=== PATIENT | female | born 1980 | race Caucasian/White ===

== ENCOUNTER 2016-10-05 19:44 | Emergency (ER) | payer SELFPAY ==
[~2016-10-05] VITALS: Ht 167.6 cm; Wt 82.0 kg
--- NOTE | 2016-10-05 20:32 | PD ---
HPI Chief Complaint: Psychiatric Symptoms Time Seen by Provider: 20:32 Travel History International Travel<30 days: No Contact w/Intl Traveler<30days: No History of Present Illness HPI 36-year-old female with a history of asthma with a history of depression, bipolar disorder, PTSD is transferred to our hospital under Sanchez act for psychiatric evaluation. Per the Sanchez act report and the medical records sent with the patient she was seen at [facility] 2 days ago for attempted overdose. She apparently took 20 tablets of Prozac, 3 tablets of trazodone, 30 tablets of Zyprexa with alcohol. She was seen and evaluated in the emergency department and admitted to ICU stepdown unit where she was observed. The patient's labs, imaging and EKG are made unremarkable during her hospital stay. She was medically cleared and transferred to our facility for psychiatric evaluation for suicidal ideations. The patient is denying suicidal ideations or attempted suicide. She is stating that she "just wanted to go to sleep" because she has been unable to sleep for several days. She does admit that she has a tortuous relationship with her son who just moved back in with her which is what is causing her to have anxiety. She denies any medical complaints. She denies any chest pain, shortness of breath, abdominal pain, nausea, vomiting, diarrhea, headache, dizziness. No other complaints. PFSH Past Medical History Anemia: Yes Asthma: Yes Social History Tobacco Use: Yes Review of Systems Except as stated in HPI: all other systems reviewed are Neg Physical Exam Narrative GENERAL: Well-nourished and well-developed pleasant female patient in no acute distress who is nontoxic appearing. SKIN: Warm and dry. HEAD: Normocephalic and atraumatic. EYES: No injection, drainage, or hyphema noted. PERRLA. EOMI. ENT: No nasal drainage noted. Oropharynx is clear. NECK: Supple and the trachea is midline. CARDIOVASCULAR: Regular rate and rhythm. RESPIRATORY: Breath sounds are equal bilaterally with no accessory muscle use, wheezing, rhonchi, or crackles. GASTROINTESTINAL: Abdomen is soft, non-tender, and nondistended. MUSCULOSKELETAL: No obvious deformities, swelling, cyanosis, or ecchymosis is present throughout the upper and lower extremities. Patient has full range of motion without any signs of neurovascular compromise. NEUROLOGICAL: Awake, alert, and oriented. Normal speech and gait. Cranial nerves are grossly intact. MDM Medical Decision Making Medical Screen Exam Complete: Yes Emergency Medical Condition: Yes Differential Diagnosis Differential: Depression versus adjustment reaction versus anxiety versus PTSD versus psychosis NOS versus mood disorder NOS versus substance induced mood disorder versus ODD versus adjustment reaction versus schizophrenia versus bipolar disorder versus schizoaffective versus electrolyte abnormality Narrative Course Patient presents under a Sanchez act. Patient was seen and evaluated at [facility] for possible overdose and observed for 2 days inpatient at their facility. I reviewed the labs and imaging from the last 2 days which were unremarkable. Of note the patient did have alcohol on board as well as positive cocaine on her urine drug screen. Physical examination and vital signs are essentially unremarkable. Patient has no medical complaints to report. The patient does not require any repeat laboratory testing at this time. Psych screen has been ordered. The patient will be medically cleared for psychiatric evaluation and disposition. Diagnosis Primary Impression: Suicidal behavior Qualified Code: T14.91 - Suicidal behavior with attempted self-injury Liegh Rich Oct 05, 2016 20:32
[2016-10-05] MEDS ORDERED: NICOTINE 21 MG/24 HR PATCH T-DERMAL ONE (21:30)
[2016-10-05 22:00] VITALS: BP 117/68; PULSE 71; RESP 18; O2SAT 96
[2016-10-06] MEDS ORDERED: PROZ20CA11 PO ×2 (01:31→14:14)
[2016-10-06] MEDS ORDERED: ZYPR2.5T2 PO (01:31)
[2016-10-06] MEDS ORDERED: TRAZ50TA12 PO (01:31)
[2016-10-06 02:21] VITALS: BP 141/84; PULSE 73; RESP 18; O2SAT 97
[2016-10-06 02:36] VITALS: BP 117/68; PULSE 71; RESP 18; O2SAT 96
[2016-10-06 06:12] VITALS: BP 130/86; PULSE 65; RESP 17; O2SAT 97
[2016-10-06 10:00] VITALS: BP 137/80; PULSE 68; RESP 18
[2016-10-06 14:11] VITALS: BP 135/88; PULSE 67; RESP 18; O2SAT 99
--- NOTE | 2016-10-06 14:13 | PD ---
History of Present Illness Chief Complaint: Psychiatric Symptoms Time Seen by Provider: 14:00 Travel History International Travel<30 Days: No Contact w/Intl Traveler<30days: No Known affected area: No Legal Status Legal Status: Sanchez Act Sanchez Act Signed By: STANLEY Damon DO [facility] History of Present Illness: This is a 36-year-old female who was Sanchez acted at [facility] for overdosing on medicines while consuming alcohol. Patient was represented as having a history of schizophrenia and bipolar disorder. She currently shows no significant evidence of either disease. She did relapse regarding cocaine use after her son moved back into the home recently. Apparently her son has a significant problem with drug abuse. Patient finds his presence at home difficult to tolerate but was told by this physician she cannot use him as an excuse for her own relapse. Patient denies any suicidality and in fact verbally contracts for safety. Her cognition is intact. Again, she states shows no sign of significant major mental illness other than drug abuse. She is acting calm, cooperative and appropriately. She wants to be discharged home. She is verbally [place] for safety. [facility] Past Medical History Medical History: Denies Significant Hx Anemia: Yes Asthma: Yes Psychiatric History Psychiatric History Hx Psychiatric Treatment: Patient with history of schizophrenia, bipolar d/o, axiety d/o and insomnia. Last inpatient admit for 2 days 2015. Patient states she goes to [facility] ER for her medications. This physician feels [facility] "sold" as a "bill of goods" by intimating the patient is either schizophrenic or bipolar. Patient does not show current evidence of either illness and instead is obviously abusing cocaine. History of Inpatient Treatment: Yes Social History Hx Alcohol Use: Yes Hx Tobacco Use: Yes Hx Substance Use: Yes Substance Use Type: Alcohol, Crack, Marijuana, Cocaine Other Substances Used: clean for 7 yrs Hx of Substance Use Treatment: Yes Allergies-Medications (Allergen,Severity, Reaction): Coded Allergies: No Known Allergies (Unverified , 10/05/16) Reported Meds & Prescriptions Reported Meds & Active Scripts Active Review of Systems Except as stated in HPI: all other systems reviewed are Neg Exam Alert: Yes Hart[place]: Person, Place, Date, Situation Mood: Calm Affect: Appropriate Speech: Clear, Logical Eye Contact: Normal Memory Intact: Immediate, Recent, Remote Insight/Judgement Adequate MDM Medical Decision Making Medical Record Reviewed: Yes Assessment/Plan Sanchez act being lifted and patient being discharged home. She was encouraged to attend an AA meetings and stop using illegal drugs. She was given prescriptions for Prozac and Vistaril per her own request. Orders Hydroxyzine Pamoate (Vistaril) (10/05/16 21:00) Nicotine 21 Mg Patch.24 Hr (Habitrol 21 (10/05/16 21:30) Psych Screen (10/05/16 22:29) Diet Regular Basic (10/06/16 Breakfast) Diet Regular Basic (10/06/16 Lunch) Diet Regular Basic (10/06/16 Dinner) Results Vital Signs Date Time Temp Pulse Resp B/P Pulse Ox O2 Delivery O2 Flow Rate FiO2 10/06/16 10:00 68 18 137/80 Room Air 10/06/16 06:12 65 17 130/86 97 Room Air 10/06/16 02:21 73 18 141/84 97 Room Air 10/05/16 22:00 71 18 117/68 96 Room Air Diagnosis Primary Impression: Suicidal behavior Additional Impression: Cocaine abuse Problem Qualifiers Primary Impression: Suicidal behavior Qualified Code: T14.91 - Suicidal behavior with attempted self-injury Emeterio Marshall MD Oct 06, 2016 14:13
[2016-10-06] MEDS ORDERED: VIST50CA PO (14:14)
[2016-10-06] MEDS ORDERED: hydrOXYzine PAMOATE 25 MG CAP PO ONE (15:00)
== END 2016-10-06 15:05 | disposition home or self-care (01) ==
LOC: NEPJ 19:44
DX: T14.91 Suicide attempt (principal); F31.9 Bipolar disorder, unspecified; F43.10 Post-traumatic stress disorder, unspecified; Z87.891 Personal history of nicotine dependence
CPT/HCPCS: 99283; Q0177